=== PATIENT | male | born 1950 | race Caucasian/White ===

== ENCOUNTER 2017-02-10 06:14 | Inpatient (IN) | payer BC ==
[2017-01-26 14:31] VITALS: BMI 25.8
[2017-02-10] MEDS ORDERED: SODIUM CHLORIDE 0.9% P/F 10 ML VIAL IJ ONE (06:38)
[2017-02-10] MEDS ORDERED: DEXAMETHASONE SOD PHOSPHATE/PF 10 MG/ML SDV ONE (06:38)
[2017-02-10] MEDS ORDERED: MIDAZOLAM HCL 2 MG/2 ML SINGLE DOSE VIAL ONE ×4 (06:38→10:33)
[2017-02-10] MEDS ORDERED: ROPIVACAINE HCL 0.5% 30ML VIAL ONE (06:38)
[2017-02-10] MEDS ORDERED: PANTOPRAZOLE 40 MG TABLET (FP) PO ONE (06:46)
[2017-02-10] MEDS ORDERED: ROPIVICAINE 0.2%/MORPH PF/KETOROLAC - 51ML DISP.SYRINGE IA ONE (06:56)
[2017-02-10] MEDS ORDERED: TRANEXAMIC ACID 1000 MG/10 ML VIAL IVPUSH ONE (06:56)
[2017-02-10] MEDS ORDERED: CEFAZOLIN 2 GM in DEXTROSE 5%-WATER - 50 ML IVPB ONE (06:56)
[2017-02-10] MEDS ORDERED: CELECOXIB 200 MG CAPSULE PO ONE (06:56)
[2017-02-10] MEDS ORDERED: oxyCODONE HCL 10 MG SUSTAINED ACTING TABLET PO ONE (06:56)
[2017-02-10] MEDS ORDERED: GABAPENTIN 300 MG CAPSULE (FP) PO ONE (06:56)
[2017-02-10] MEDS ORDERED: PANTOPRAZOLE 40 MG TABLET (FP) ONE (07:00)
[2017-02-10] MEDS ORDERED: VANCOMYCIN 1,000 MG VIAL (RESTRICTED TO ID ONLY) ONE (07:12)
[2017-02-10] MEDS ORDERED: ceFAZolin SODIUM 1 GM VIAL ONE ×2 (07:12→07:47)
[2017-02-10] MEDS ORDERED: BUPIVACAINE HCL/PF 0.5% (5MG/ML) 10 ML VIAL ONE ×2 (07:39→08:24)
[2017-02-10] MEDS ORDERED: DEXAMETHASONE SOD PHOSPHATE 4 MG/1 ML VIAL ONE (07:47)
[2017-02-10] MEDS ORDERED: ONDANSETRON 4 MG/2 ML VIAL ONE (07:47)
--- NOTE | 2017-02-10 07:51 | HP ---
Admitting History and Physical - Admission Chief Complaint: right knee osteoarthritis x years History of Present Illness: 66 year old male presenting in regard to his right knee. Longstanding history of right knee osteoarthritis. Patient admits to pain, limited ROM, difficulty ambulating and difficulty completing ADLs. Patient has failed conservative treatment measures including PO medication, activity modification, exercise program and injections. At this point, patient would like to proceed with a right total knee arthroplasty. History Source: Patient - Past Medical History Cardiovascular: Yes: Hyperlipdemia, Other (inverted T wave on EKG- patient reports this is his norm) Musculoskeletal: Yes: Osteoarthritis - Past Surgical History Past Surgical History: Yes: None Additional Past Surgical History: See written H&P - Smoking History Smoking history: Never smoked Have you smoked in the past 12 months: No - Alcohol/Substance Use Hx Alcohol Use: No History of Substance Use: reports: None - Social History ADL: Independent History of Recent Travel: No Home Medications - Allergies Allergies/Adverse Reactions: Allergies Allergy/AdvReac Type Severity Reaction Status Date / Time No Known Drug Allergies Allergy Verified 01/26/17 14:24 - Home Medications Home Medications: Ambulatory Orders Atorvastatin Ca [Lipitor] 40 mg PO HS 01/23/16 Ascorbic Acid [Vitamin C] 100 mg PO DAILY 02/02/16 Ezetimibe [Zetia] 10 mg PO DAILY 02/02/16 [place]-3 Fatty Acids [Fish Oil] 1 cap PO DAILY 02/02/16 Ubidecarenone/Vit E Acetate [Co Q-10 100 mg Softgel] 1 each PO DAILY 02/02/16 Review of Systems - Review of Systems Musculoskeletal: reports: Crepitus (Right knee), Decreased ROM (Right knee), Joint Pain (Right knee), Joint Swelling (Right knee) Physical Examination Vital Signs: Vital Signs Temperature 97.8 F 02/10/17 06:47 Pulse Rate 66 02/10/17 06:47 Respiratory Rate 18 02/10/17 06:47 Blood Pressure 127/72 02/10/17 06:47 O2 Sat by Pulse Oximetry (%) Constitutional: Yes: Well Nourished, No Distress Eyes: Yes: Conjunctiva Clear HENT: Yes: Atraumatic, Normocephalic Neck: Yes: Supple Cardiovascular: Yes: Regular Rate and Rhythm Respiratory: Yes: Regular Gastrointestinal: Yes: Soft ...Rectal Exam: Yes: Deferred Musculoskeletal: Yes: Joint Stiffness (Right knee), Joint Swelling (Right knee) Assessment/Plan 66 year old male presents regarding his right knee. Long standing history of right knee osteoarthritis. Patient had continued pain, limited ROM and difficulty ambulating. Patient has failed conservative treatment measures. Proceed with a right total knee arthroplasty.
[2017-02-10] MEDS ORDERED: TRANEXAMIC ACID 1000 MG/10 ML VIAL ONE (08:23)
[2017-02-10] MEDS ORDERED: traMADol HCL 50 MG TABLET ONE (11:47)
[2017-02-10] MEDS ORDERED: ACETAMINOPHEN INJECTION 100 ML IVPB ONE (11:47)
[2017-02-10] MEDS ORDERED: KETOROLAC TROMETHAMINE 30 MG/1 ML VIAL ONE (11:47)
--- NOTE | 2017-02-10 12:01 | OP ---
Operative Note - Note: Operative Date: 02/10/17 Pre-Operative Diagnosis: Right knee OA Operation: right TKA Post-Operative Diagnosis: Same as Pre-op Surgeon: Hugo Griffith Manufacturing Associate: Vicky Diaz Anesthesia: Spinal Estimated Blood Loss (mls): 100
[2017-02-10] MEDS ORDERED: MAGNESIUM HYDROX 2400MG/30ML ORAL SUSPENSION 30 ML CUP PO PRN (12:03)
[2017-02-10] MEDS ORDERED: MAG HYDROX/AL HYDROX/SIMETH 30 ML UNIT-DOSE CUP PO PRN (12:03)
[2017-02-10] MEDS ORDERED: ONDANSETRON 4 MG/2 ML VIAL IVPB PRN (12:03)
[2017-02-10] MEDS ORDERED: oxyCODONE HCL 5 MG TABLET PO PRN ×2 (12:06→12:07)
[2017-02-10] MEDS: KETOROLAC TROMETHAMINE 30 MG/1 ML VIAL IVPUSH SCH ×3 (12:10→18:46)
[2017-02-10] MEDS: ACETAMINOPHEN 1000 MG/100 ML VIAL (NON FORMULARY) IVPB ONE ×2 (12:10→13:39)
[2017-02-10] MEDS ORDERED: LACTATED RINGERS SOLUTION 1,000 ML IV SCH (12:15)
--- NOTE | 2017-02-10 12:34 | SPEC ---
DATE OF OPERATION: 02/10/2017 PREOPERATIVE DIAGNOSIS: Right knee osteoarthritis. POSTOPERATIVE DIAGNOSIS: Right knee osteoarthritis. PROCEDURE: Right total knee replacement. ATTENDING SURGEON: Gianni Brown MD MANUFACTURING ENGINEERING TECHNICIAN: JAYA Person ANESTHESIA: Spinal plus sedation. ESTIMATED BLOOD LOSS: 100 mL. COMPLICATIONS: None. SPECIMENS: Resected bone was sent for pathology analysis. DISPOSITION: The patient was transferred to the PACU in stable condition. IMPLANTS USED: [place] [employer] size 5 femoral component, size 4 tibial component with 50-mm stem, 11-mm total stabilized polyethylene insert, and 32-mm patellar component. INDICATIONS: This is a 66-year-old male who is a longtime patient of mine, who had bilateral knee osteoarthritis. He had a left total knee replacement performed in January 2016 and did exceptionally well. He continued to have significant varus deformity in his right knee and flexion contracture which was affecting his ambulation. He has failed conservative management and was indicated for a right total hip replacement. The risks, benefits, and alternatives to the surgery were explained to the patient in great detail and he elected to proceed with the surgery. DESCRIPTION OF PROCEDURE: On the day of surgery, the patient was taken to the operating room and placed on the OR table. Spinal anesthesia was administered by the anesthesiologist. The patient was then positioned supine on the table and all bony prominences were padded. A nonsterile tourniquet was placed on the proximal thigh. The knee was then prepped and draped in the usual sterile fashion and intravenous antibiotics were given for infection prophylaxis. A surgical time-out was then performed with the team, and the patients identity, procedure, side, availability of implants, and the administration of antibiotics was confirmed. The leg was then elevated and exsanguinated, and the tourniquet was inflated. With the knee flexed, a midline incision was made and carried down through the subcutaneous fat to the underlying retinaculum. A medial parapatellar arthrotomy was performed. This was followed by a subperiosteal dissection of the tissue off the proximal, medial tibia. A portion of fat pad was removed from under the patellar tendon, and a small portion of fat was excised off the distal supracondylar femur. The knee was then flexed further and the anterior horn of the lateral meniscus was released from the midline. Next, the anterior and posterior cruciate ligaments were transected. Osteophytes were removed from both the femur and tibia. Grade 4 changes were noted diffusely throughout the knee. Hohmann retractors were then placed around the distal femur. The starting drill was used to enter the intramedullary canal. The starting point had been chosen by checking the radiographs and anatomy. Proper alignment and intramedullary placement was then confirmed by placing the long narrow lovely into the femur. Next, the distal femoral cutting guide was adjusted to 6 degrees of valgus and pinned to the femur. The bone resection was assessed using an irina-wing. An approximately 10-mm distal cut was made and the cut pieces measured. Once this was complete, the sizing guide was used to determine which size femoral component should be used. Next, the appropriately sized 4-in-1 cutting block was then placed at the correct amount of external rotation and the irina wing was used to assure that there would be no notching of the anterior cortex of the femur. Once this was done, Hohmann retractors were used to protect the medial and lateral collateral ligaments, and all appropriate bone cuts were made. Attention was then turned to the tibia. Hohmann retractors were used to translate the tibia anteriorly and protect the collateral ligaments. The medial and lateral menisci were removed. The extramedullary tibial alignment guide was then placed and adjusted for rotation, varus/valgus, and slope. The height of the cutting block was adjusted to the level of the desired bone resection and then pinned in place. The proximal tibia was then cut with a saw and the bone was removed and measured. Once this was completed, trial components were placed and the knee was taken through a full range of motion. Soft tissue balance was assessed in both flexion and extension and found to be appropriate. The knee was stable throughout the full range of motion. The knee was then put into extension and the patella everted. The synovium around the patella was circumscribed with electrocautery. A caliper was used to measure the patellar thickness and a saw was then used to resect the patella at the chondro-osseous junction. The cut surface was then sized and drilled for the appropriate patellar button, with care taken to medialize it. A trial patella was then placed and the knee was again taken through a full range of motion. The knee was found to have both good balance and good patellar tracking. All of the components were removed except the tibial base plate. The appropriate instrumentation was used to drill and punch the proximal tibia for the keel of the final component. All bony surfaces were then cleaned with pulsatile lavage and dried. Bone cement was then prepared on the back table, and final components were cemented in place in the usual fashion. Extruded cement was removed. The polyethylene trial was placed, the knee was put into extension, and axial pressure was applied for compression while the cement hardened. The patellar button was similarly cemented into place. Once the cement had hardened, the knee was taken through a full range of motion to assess stability, balance, and patellar tracking. This was found to be optimal and the trial polyethylene was exchanged for the appropriately sized real implant. The wound was then thoroughly irrigated with normal saline. No. 1 Polysorb and 0 VLoc 180 barbed sutures were used to close the arthrotomy. No. 1 Polysorb and 2-0 Polysorb sutures were used in the subcutaneous tissues. The skin was closed using both 3-0 VLoc 90 suture in a running subcuticular fashion and SwiftSet skin adhesive. Once this was completed a sterile Aquacel dressing and compressive Sebastian-wrap was applied. The tourniquet was then deflated and the patient was awakened and taken to the PACU in stable condition. ADDENDUM: After final implants were placed, a 3-minute dilute Betadine lavage was performed according to the LOCKNEY protocol. Following this, the wound was again thoroughly irrigated with normal saline pulsatile lavage and wound closure was begun. GIANNI BROWN M.D. [id number]
[2017-02-10] MEDS: PSYLLIUM 5.85 GM PACKET PO SCH ×2 (14:00→21:32)
[2017-02-10] MEDS: traMADol HCL 50 MG TABLET PO SCH ×2 (14:00→18:45)
[2017-02-10] MEDS: CEFAZOLIN 2 GM/D5W 50 ML IVPB SCH (18:46)
[2017-02-10] MEDS: ACETAMINOPHEN 325 MG TABLET (FP) PO SCH (18:46)
[2017-02-10] MEDS: CELECOXIB 200 MG CAPSULE PO SCH (21:31)
[2017-02-10] MEDS: ATORVASTATIN CA 40 MG TABLET (FP) PO SCH (21:31)
[2017-02-10] MEDS: SENNOSIDES/DOCUSATE COMBO (SENNA PLUS) TABLET (UD) PO SCH (21:31)
[2017-02-10] MEDS: ASCORBIC ACID 500 MG TABLET (FP) PO SCH (21:31)
[2017-02-10] MEDS: oxyCODONE HCL 10 MG SUSTAINED ACTING TABLET PO SCH (21:32)
[2017-02-10] MEDS: GABAPENTIN 300 MG CAPSULE (FP) PO SCH (21:32)
[2017-02-11] MEDS: ACETAMINOPHEN 325 MG TABLET (FP) PO SCH ×4 (00:04→17:16)
[2017-02-11] MEDS: traMADol HCL 50 MG TABLET PO SCH ×4 (00:04→17:16)
[2017-02-11] MEDS: KETOROLAC TROMETHAMINE 30 MG/1 ML VIAL IVPUSH SCH ×2 (00:05→06:20)
[2017-02-11] MEDS: CEFAZOLIN 2 GM/D5W 50 ML IVPB SCH (01:15)
[2017-02-11] MEDS: PSYLLIUM 5.85 GM PACKET PO SCH ×3 (06:21→21:08)
[2017-02-11 08:07] LABS: MCH 31.1 pg (25.7-33.7); MEAN CELL VOLUME 91.5 fl (80-96); MEAN PLT VOLUME 8.3 fl (7.5-11.1); PLATELET COUNT 265 K/MM3 (134-434); RDW 12.4 % (11.9-15.9); WHITE BLOOD COUNT 12.9 K/mm3 (4.0-10.8)
[2017-02-11 08:10] LABS: ANION GAP 8 (8-16); CALCIUM 8.8 mg/dl (8.4-10.2); CO2 22 mmol/L (22-28); CREATININE 0.9 mg/dl (0.6-1.3); GLUCOSE,RANDOM 196 mg/dl (74-106)
[2017-02-11] MEDS: ASPIRIN 325 MG TABLET PO SCH (09:07)
[2017-02-11] MEDS: SENNOSIDES/DOCUSATE COMBO (SENNA PLUS) TABLET (UD) PO SCH ×2 (09:08→21:07)
[2017-02-11] MEDS: MULTIVITAMINS (DAILY MVI) TABLET (FP) PO SCH (09:08)
[2017-02-11] MEDS: EZETIMIBE 10 MG TABLET (FP) PO SCH (09:08)
[2017-02-11] MEDS: GABAPENTIN 300 MG CAPSULE (FP) PO SCH ×2 (09:08→21:08)
[2017-02-11] MEDS: CELECOXIB 200 MG CAPSULE PO SCH ×2 (09:09→21:08)
[2017-02-11] MEDS: PANTOPRAZOLE 40 MG TABLET (FP) PO SCH (09:09)
[2017-02-11] MEDS: ASCORBIC ACID 500 MG TABLET (FP) PO SCH ×2 (09:09→21:08)
[2017-02-11] MEDS: oxyCODONE HCL 10 MG SUSTAINED ACTING TABLET PO SCH ×2 (09:10→21:08)
--- NOTE | 2017-02-11 14:05 | PN ---
Progress Note (short form) - Note Progress Note: Anesthesia post op note. POD#1. S/PRight total knee replacement. Pat seen and examined. VSS. no post anesthesia complications.
--- NOTE | 2017-02-11 18:51 | PN ---
Progress Note (short form) - Note Progress Note: Pt seen and examined. Did exceptionally well with PT today. No complaints. AVSS Selected Entries 02/11/17 02/11/17 02/11/17 05:59 07:47 14:13 Temperature 98.4 F Pulse Rate 64 Respiratory 18 Rate Blood Pressure 109/57 O2 Sat by Pulse 93 L 93 L Oximetry (%) Oxygen Delivery Room Air Room Air Method Laboratory Tests 02/11/17 02/11/17 07:00 07:00 WBC 12.9 H D Hgb 13.0 Hct 38.4 Plt Count 265 Sodium 134 L Potassium 3.7 Chloride 104 Carbon Dioxide 22 D Anion Gap 8 BUN 22 H D Creatinine 0.9 Random Glucose 196 H D Calcium 8.8 Gen: NAD RLE: c/d/i, NVID A/P 66yo male POD#1 s/p R TKA 1. PT/OOB - WBAT RLE 2. D/C in AM after PT; f/u in office in 10-14 days.
--- NOTE | 2017-02-11 18:56 | DS ---
Physical Examination Vital Signs: Vital Signs Temperature 98.4 F 02/11/17 14:13 Pulse Rate 64 02/11/17 14:13 Respiratory Rate 18 02/11/17 14:13 Blood Pressure 109/57 02/11/17 14:13 O2 Sat by Pulse Oximetry (%) 93 L 02/11/17 14:13 Labs: CBC, BMP 02/11/17 07:00 02/11/17 07:00 Discharge Summary Reason For Visit: OSTEOARTHRITIS OF RIGHT KNEE Current Active Problems Osteoarthritis of right knee (Acute) Procedures: Principal: right TKA Hospital Course: Admitted for elective surgery. Procedure performed without complications. Pt received postoperative antibiotic prophylaxis and DVT ppx. Ambulated with physical therapy. Stable for discharge home with outpatient followup. Condition: Stable - Instructions Diet, Activity, Other Instructions: Dr. Griffith - Knee Replacement Instructions Keep the Aquacel dressing on until removed by Dr. Griffith in 10-14 days - it is antibacterial and waterproof and you can shower with it on. Call the office for a follow-up appointment with Dr. Griffith in 10-14 days. Take one Aspirin 325mg daily for 6 weeks to prevent blood clots in your legs. Take one Pantoprazole 40mg daily for 6 weeks to protect against heartburn and ulcers. Take Celebrex 200mg twice daily for 30 days to reduce swelling and inflammation. Take a multivitamin, extra vitamin C supplement, and stool softener (and/or Metamucil) daily. For pain: *Mild pain (1-3/10): Take 1 Tramadol tablet every 4 hours as needed. Moderate pain (4-6/10): Take 1 Tramadol tablet and 1 Percocet tablet every 4 hours as needed. Severe pain (7-10/10): Take 1 Tramadol tablet and 2 Percocet tablets every 4 hours as needed. Activity: You can put as much weight on the operative leg as you want. Right after you get home, there will be a physical therapist coming to your house to help you walk around and bend/straighten your knee. After your follow-up appointment, you will be sent for more intensive outpatient physical therapy which will include machines and equipment that the home therapist cannot bring to your house. Always use a walker or cane for balance and to prevent falls. Disposition: VNS/HOME HEALTH CARE - Home Medications Comprehensive Discharge Medication List: Ambulatory Orders Atorvastatin Ca [Lipitor] 40 mg PO HS 01/23/16 Ascorbic Acid [Vitamin C] 100 mg PO DAILY 02/02/16 Ezetimibe [Zetia] 10 mg PO DAILY 02/02/16 [place]-3 Fatty Acids [Fish Oil] 1 cap PO DAILY 02/02/16 Ubidecarenone/Vit E Acetate [Co Q-10 100 mg Softgel] 1 each PO DAILY 02/02/16 Ascorbic Acid [Vitamin C -] 500 mg PO BID tablet 02/11/17 Aspirin [ASA -] 325 mg PO DAILY@0800 tablet 02/11/17 Celecoxib [CeleBREX -] 200 mg PO BID #60 tab 02/11/17 Multivitamins [Multivit ([facility] Formulary)] 1 tab PO DAILY tab 02/11/17 Oxycodone HCl/Acetaminophen [Percocet 5-325 mg Tablet] 1 - 2 tab PO Q4H PRN #90 tablet MDD 10 02/11/17 Pantoprazole Sodium [Protonix -] 40 mg PO DAILY #40 tab 02/11/17 Psyllium [Metamucil (Sugar-Free) -] 5.85 gm PO TID packet 02/11/17 Sennosides/Docusate Sodium [Pericolace -] 1 tablet PO BID tablet 02/11/17 Tramadol HCl [Ultram -] 50 mg PO Q4H PRN #90 tablet MDD 6 02/11/17
[2017-02-11] MEDS: ATORVASTATIN CA 40 MG TABLET (FP) PO SCH (21:08)
[2017-02-12] MEDS: ACETAMINOPHEN 325 MG TABLET (FP) PO SCH ×2 (00:10→07:00)
[2017-02-12] MEDS: traMADol HCL 50 MG TABLET PO SCH ×2 (00:12→07:00)
[2017-02-12 06:30] VITALS: BP 140/69; PULSE 93; TEMP 99.1
[2017-02-12] MEDS: PSYLLIUM 5.85 GM PACKET PO SCH (07:00)
[2017-02-12 07:40] LABS: MCH 30.8 pg (25.7-33.7); MCHC 33.5 g/dl (32.0-35.9); MEAN CELL VOLUME 91.9 fl (80-96); MEAN PLT VOLUME 7.6 fl (7.5-11.1); PLATELET COUNT 249 K/MM3 (134-434); RDW 12.5 % (11.9-15.9); WHITE BLOOD COUNT 9.9 K/mm3 (4.0-10.8)
[2017-02-12 08:06] LABS: ANION GAP 4 (8-16); CALCIUM 8.2 mg/dl (8.4-10.2); CO2 23 mmol/L (22-28); CREATININE 0.9 mg/dl (0.6-1.3); GLUCOSE,RANDOM 143 mg/dl (74-106)
[2017-02-12] MEDS: MULTIVITAMINS (DAILY MVI) TABLET (FP) PO SCH (09:09)
[2017-02-12] MEDS: ASPIRIN 325 MG TABLET PO SCH (09:09)
[2017-02-12] MEDS: CELECOXIB 200 MG CAPSULE PO SCH (09:10)
[2017-02-12] MEDS: ASCORBIC ACID 500 MG TABLET (FP) PO SCH (09:10)
[2017-02-12] MEDS: PANTOPRAZOLE 40 MG TABLET (FP) PO SCH (09:11)
[2017-02-12] MEDS: GABAPENTIN 300 MG CAPSULE (FP) PO SCH (09:11)
[2017-02-12] MEDS: SENNOSIDES/DOCUSATE COMBO (SENNA PLUS) TABLET (UD) PO SCH (09:11)
[2017-02-12] MEDS: EZETIMIBE 10 MG TABLET (FP) PO SCH (09:11)
[2017-02-12] MEDS: oxyCODONE HCL 10 MG SUSTAINED ACTING TABLET PO SCH (09:12)
--- NOTE | 2017-02-15 16:57 | PATH ---
Surgical Pathology Report Patient Name: CHETNA GARCIA Med. Rec. #: [id number] /Age/Gender: 1950 (Age: 66) / M Account: [id number] Location: [facility] MED-SURG Taken: 02/10/2017 Received: 02/10/2017 Reported: 02/15/2017 Physicians: Hugo Griffith M.D. Specimen(s) Received BONE RIGHT KNEE Clinical History Osteoarthritis right knee Final Diagnosis BONE, RIGHT KNEE, TOTAL KNEE REPLACEMENT: DEGENERATIVE JOINT DISEASE. Electronically Signed Samreen Fontaine M.D. Gross Description Received in formalin labeled "bone right knee," is a 14.0 x 11.0 x 2.5 cm aggregate of multiple weaver, irregular portions of bone and soft tissue. The tibial plateau measures 7.8 x 5.3 x 1.5 cm. There is a 1.8 cm in greatest dimension area of eburnation present. The articular surfaces are weaver-yellow and focally granular. The underlying trabecular bone is yellow and hard. House Detective sections are submitted in one cassette, following decalcification. 02/11/201702/11/2017
== END 2017-02-12 12:00 | disposition home health service (06) | DRG 470 ==
LOC: FM/S 06:14
PROVIDERS: ADMIT Student in an Organized Health Care Education/Training Program; ATTEND Student in an Organized Health Care Education/Training Program
PROC: 0SRC0J9 Replacement of Right Knee Joint with Synthetic Substitute, Cemented, Open Approach (ICD-10-PCS; principal; 2017-02-10 09:02)
DX: M17.11 Unilateral primary osteoarthritis, right knee (principal); E78.5 Hyperlipidemia, unspecified; E66.9 Obesity, unspecified; Z68.25 Body mass index [BMI] 25.0-25.9, adult
CPT/HCPCS: 36415; 73560-TC-RT; 80048; 85027; 88304-TC; 88311-TC; 94010; 94760; 97010-GP; 97116-GP; 97161-GP

== ENCOUNTER 2018-05-02 20:07 | Emergency (ER) | payer OTHER, BC ==
--- NOTE | 2018-05-02 20:10 | PDOC ---
History of Present Illness - History of Present Illness Initial Comments: 05/02/18 21:14Patient is a 67 year old male with a significant past medical history of HLD, who presents to the ED with complaints of neck tightness and chest uncomfortability this morning. Patient reports going to see his mutual fund accountant shortly after symptoms began, stating he believed he was having a heart attack. He reports full cardiac work up was done with all results returning negative. Patient reports being told it is most likely anxiety. He reports coming into the ED for further evaluation, stating he wants a second opinion. Patient sent copy of cardiogram to mutual fund accountant who called. Signalling And Communications Engineer discussed with ED physician, said the ECG was unchanged from prior as well as from many years ago. Stress test done was negative, as well as No cardiac disease. Signalling And Communications Engineer advised if the blood work is negative patient is safe to be discharged home Denies nausea, vomiting. Denies fevers, chills, shortness of breath. Denies contact with sick individuals, out of state travelling. Denies any other symptoms. Allergies: None Social history: Lives with . No smoking. No alcohol. No illicit drugs. Surgical history: None PMD: None Signalling And Communications Engineer: Dr. Strickland Adult ROS General: No fevers or chills, no weakness, no weight loss HEENT: No change in vision. No sore throat, No ear pain Cardiovascular: No chest pain or shortness of breath Respiratory:No cough, or wheezing. Gastrointestinal: No nausea, vomiting, diarrhea or constipation, No rectal bleeding Genitourinary: No dysuria, hematuria, or frequency Musculoskeletal: No joint or muscle pain or swelling Neurologic: No headache, vertigo, dizziness or loss of consciousness Psychiatric: No depression Skin: No rashes or easy bruising Endocrine: No increased thirst or abnormal weight change Allergic: No skin or latex allergy All other systems reviewed and normal Adult PE General: Well-nourished well-developed individual, no acute distress HEENT: Throat: Normal, tonsils normal, no erythema or exudate Neck: Supple, no meningeal signs, no lymphadenopathy Eyes:Pupils equal reactive and round, extraocular motion intact Chest: Nontender to palpation Cardiac: +Irregular rate and rhythm. S1-S2 normal, no murmurs rubs or gallops Respiratory: Lungs clear to auscultation bilateral Extremities: Warm, dry, no cyanosis, clubbing, or edema Skin: No rashes Neuro: Alert and oriented x3, nonfocal exam, grossly intact, normal gait Psych: Normal mood and affect <Se Rollins - Last Filed: 05/02/18 21:14> - General History Source: Patient Exam Limitations: No Limitations - History of Present Illness Initial Comments: 05/02/18 21:00 A portion of this note was documented by scribe services under my direction. I have reviewed the details of the note, within reason, and agree with the documentation with the following case summary and management plan written by me. Patient treated in the ED. Nursing notes are reviewed and incorporated into the medical decision-making. Vital signs reviewed. Assessment and plan: This is 67-year-old male who comes in complaining of some left posterior neck tightness and discomfort. Patient saw his mutual fund accountant earlier in the day proximally 4 hours ago for similar symptoms had a EKG and was told this is not cardiac however he now comes in for a second opinion. His repeat EKG has no significant change with the exception of he does have some PVCs that were not seen on his cardiogram from 4 hours ago. 05/02/18 21:34 Patient took a xanax and says he feels much better. His troponin is non- measurable. Discussed with patient's mutual fund accountant and lucid patient has no cardiac disease and recommended the patient be discharged home if his troponin is non- measurable. Patient discharged home will follow-up with his mutual fund accountant. <Salvador Doyle I - Last Filed: 05/02/18 21:36> - General Chief Complaint: Pain Stated Complaint: NECK TIGHTNESS, EAR PRESSURE Time Seen by Provider: 05/02/18 20:09 Past History <Se Rollins - Last Filed: 05/02/18 21:14> - Past Medical History Anemia: No Asthma: No Cancer: No Cardiac Disorders: No (INVERTED T WAVE ON EKG/"NORMAL FOR ME",NUCLEAR STRESS OK 03/28) CVA: No COPD: No CHF: No Dementia: No Diabetes: No GI Disorders: No Disorders: No HTN: No Hypercholesterolemia: Yes Liver Disease: No Seizures: No Thyroid Disease: No - Surgical History Abdominal Surgery: No Appendectomy: No Cardiac Surgery: No Cholecystectomy: No Lung Surgery: No Neurologic Surgery: No Orthopedic Surgery: Yes (LEFT TOTAL KNEE REPLACEMENT 2016) - Suicide/Smoking/Psychosocial Hx Smoking History: Never smoked Have you smoked in the past 12 months: No Hx Alcohol Use: No Drug/Substance Use Hx: No Substance Use Type: None Hx Substance Use Treatment: No <Salvador Doyle I - Last Filed: 05/02/18 21:36> - Past Medical History Allergies/Adverse Reactions: Allergies Allergy/AdvReac Type Severity Reaction Status Date / Time No Known Drug Allergies Allergy Verified 01/26/17 14:24 Home Medications: Ambulatory Orders Atorvastatin Ca [Lipitor] 40 mg PO HS 01/23/16 Ascorbic Acid [Vitamin C] 100 mg PO DAILY 02/02/16 Ezetimibe [Zetia] 10 mg PO DAILY 02/02/16 Multivitamins [Multivit ([facility] Formulary)] 1 tab PO DAILY tab 02/11/17 *Physical Exam - Vital Signs Last Vital Signs Temp Pulse Resp BP Pulse Ox 98.5 F 77 16 153/96 98 05/02/18 20:13 05/02/18 20:13 05/02/18 20:13 05/02/18 20:13 05/02/18 20:13 <Se Rollins - Last Filed: 05/02/18 21:14> Heart Score/ECG Review - History History: Slightly suspicious - Electrocardiogram EKG: Non specific repolarization disturbance - Age Age: 45-65 - Risk Factors Based on the list above the patient has:: No risk factors known - Troponin Troponin: </= normal limit - Score Heart Score - Total: 2 <Salvador Doyle I - Last Filed: 05/02/18 21:36> *DC/Admit/Observation/Transfer - Attestations Scribe Attestion: 05/02/18 21:15 Documentation prepared by Se Rollins, acting as medical radiation dosimetrist for Salvador Doyle MD. <Se Rollins - Last Filed: 05/02/18 21:14> - Discharge Dispostion Decision to Admit order: No <Salvador Doyle I - Last Filed: 05/02/18 21:36> Diagnosis at time of Disposition: Anxiety about health - Discharge Dispostion Disposition: HOME Condition at time of disposition: Stable - Patient Instructions Additional Instructions: Return to the emergency department immediately with ANY new, persistent or worsening symptoms. Continue any medications as previously prescribed by your physician. You should follow up with your cardiac doctor as soon as possible regarding today's emergency department visit. . Please make sure your doctor reviews the results of your emergency evaluation. Thank you for coming to the Emergency Department today for your care. It was a pleasure to see you today. Please note that your evaluation is INCOMPLETE until you follow-up with your doctor.
[2018-05-02 20:19] VITALS: BP 153/96; PULSE 77; TEMP 98.5; BMI 28.8
--- NOTE | 2018-05-03 11:00 | EKG ---
Test Reason : Blood Pressure : / mmHG Vent. Rate : 078 BPM Atrial Rate : 078 BPM P-R Int : 158 ms QRS Dur : 106 ms QT Int : 396 ms P-R-T Axes : 041 007 035 degrees QTc Int : 451 ms SINUS RHYTHM WITH FREQUENT PREMATURE VENTRICULAR COMPLEXES AND PREMATURE ATRIAL COMPLEXES INCOMPLETE LEFT BUNDLE BRANCH BLOCK NONSPECIFIC T WAVE ABNORMALITY ABNORMAL ECG WHEN COMPARED WITH ECG OF 02-MAY-2018 15:53, PREMATURE VENTRICULAR COMPLEXES ARE NOW PRESENT PREMATURE ATRIAL COMPLEXES ARE NOW PRESENT Confirmed by OMARI LAURA, SHAY ([id number]) on 05/03/2018 11:00:27 AM Referred By: DANIELLE Confirmed By:SHAY SALCIDO MD
== END 2018-05-02 21:45 | disposition home or self-care (01) ==
LOC: FER 20:07
DX: F41.1 Generalized anxiety disorder (principal); E78.5 Hyperlipidemia, unspecified
CPT/HCPCS: 36415; 82550; 82553; 84484; 93005; 93010; 99282-25

== ENCOUNTER 2020-02-14 08:11 | Emergency (ER) | payer OTHER, BC ==
[2020-02-14 08:20] VITALS: BMI 28.0
[2020-02-14] MEDS ORDERED: dilTIAZem HCL 50 MG/10 ML - 10 ML VIAL ONE (08:28)
[2020-02-14] MEDS ORDERED: dilTIAZem HCL 30 MG TABLET PO ONE (08:51)
[2020-02-14] MEDS ORDERED: METOPROLOL TARTRATE 25 MG TABLET (FP) PO ONE (08:54)
[2020-02-14] MEDS ORDERED: dilTIAZem HCL 50 MG/10 ML - 10 ML VIAL IVPUSH ONE ×2 (08:57→09:04)
[2020-02-14] MEDS ORDERED: METOPROLOL TARTRATE 25 MG TABLET (FP) ONE (08:58)
[2020-02-14] MEDS ORDERED: APIXABAN 5 MG TABLET ONE (08:58)
[2020-02-14] MEDS ORDERED: SODIUM CHLORIDE 1,000 ML IV ONE (09:10)
[2020-02-14 09:15] LABS: BASO % 0.5 % (0-2.0); EOS % 1.7 % (0-4.5); HEMATOCRIT 47.5 % (35.4-49); LYMPH % 43.2 % (8-40); MCH 30.5 pg (25.7-33.7); MCHC 33.7 g/dl (32.0-35.9); MEAN CELL VOLUME 90.6 fl (80-96); MEAN PLT VOLUME 7.9 fl (7.5-11.1); MONO % 6.8 % (3.8-10.2); NEUT % 47.8 % (42.8-82.8); PLATELET COUNT 313 K/MM3 (134-434); RBC 5.24 M/mm3 (4.00-5.60); RDW 13.1 % (11.9-15.9); WHITE BLOOD COUNT 10.8 K/mm3 (4.0-10.0)
--- NOTE | 2020-02-14 09:35 | PDOC ---
History of Present Illness - General Chief Complaint: Irregular Heart Beat Stated Complaint: SENT BY PCP Time Seen by Provider: 02/14/20 08:48 - History of Present Illness Initial Comments: 69M with PMH of 2 episodes of Afib with RVR in the past presents to the ED with palpitations after being startled by his cat this morning. He contacted his video machines mechanic who advised that he come to the ED. He denied chest pain or shortness of breath. The monitor demonstrated Afib with HR 140s. HPI PMH: as in HPI SH: see below Meds: none Allergies: NKDA Tob/Etoh/Rec drugs: negx3 PCP: unknown ROS GENERAL/CONSTITUTIONAL: No fever or chills. No weakness. HEENT: No change in vision. No ear pain or discharge. No sore throat. CARDIOVASCULAR: No chest pain or shortness of breath, +palpitations RESPIRATORY: No cough, wheezing, or hemoptysis. GASTROINTESTINAL: No nausea, vomiting, diarrhea or constipation. GENITOURINARY: No dysuria, frequency, or change in urination. MUSCULOSKELETAL: No joint or muscle swelling or pain. No neck or back pain. SKIN: No rash NEUROLOGIC: No headache, vertigo, loss of consciousness, or change in streng th/sensation. ENDOCRINE: No increased thirst. No abnormal weight change HEMATOLOGIC/LYMPHATIC: No anemia, easy bleeding, or history of blood clots. ALLERGIC/IMMUNOLOGIC: No hives or skin allergy. PE GENERAL: Awake, alert, and fully oriented, in no acute distress HEAD: No signs of trauma, normocephalic, atraumatic EYES: PERRLA, EOMI, sclera anicteric, conjunctiva clear ENT: Auricles normal inspection, hearing grossly normal, nares patent, oropharynx clear without exudates. Moist mucosa NECK: Normal ROM, supple, no LAD, JVD, or masses HEART: Regular rate and rhythm, normal S1 and S2, no murmurs, rubs or gallops, peripheral pulses normal and equal bilaterally. LUNGS: No distress, speaks full sentences, clear to auscultation bilaterally ABDOMEN: Soft, nontender. No guarding, no rebound. No masses EXTREMITIES: Normal inspection, Normal range of motion, no edema. No clubbing or cyanosis. NEUROLOGICAL: CNII-XII grossly intact. Normal speech, normal gait, no focal sensorimotor deficits SKIN: Warm, Dry, normal turgor, no rashes or lesions noted Assessment and Plan 1. Afib w/ RVR Chino Martin, PGY1 Emergency Medicine Past History - Medical History Allergies/Adverse Reactions: Allergies Allergy/AdvReac Type Severity Reaction Status Date / Time No Known Drug Allergies Allergy Verified 02/14/20 08:18 Home Medications: Ambulatory Orders Atorvastatin Ca [Lipitor] 40 mg PO HS 01/23/16 Ascorbic Acid [Vitamin C] 100 mg PO DAILY 02/02/16 Ezetimibe [Zetia] 10 mg PO DAILY 02/02/16 Multivitamins [Multivit ([facility] Formulary)] 1 tab PO DAILY tab 02/11/17 Apixaban [Eliquis] 5 mg PO BID 14 Days #28 tablet 02/14/20 Metformin HCl [Glucophage] 500 mg PO DAILY 02/14/20 Metoprolol Tartrate 25 mg PO BID 14 Days #28 tablet 02/14/20 Anemia: No Asthma: No Cancer: No Cardiac Disorders: No (INVERTED T WAVE ON EKG/"NORMAL FOR ME",NUCLEAR STRESS OK 03/28) CVA: No COPD: No CHF: No Dementia: No Diabetes: No GI Disorders: No Disorders: No HTN: Yes Hypercholesterolemia: Yes Liver Disease: No Seizures: No Thyroid Disease: No - Surgical History Abdominal Surgery: No Appendectomy: No Cardiac Surgery: No Cholecystectomy: No Lung Surgery: No Neurologic Surgery: No Orthopedic Surgery: Yes (LEFT TOTAL KNEE REPLACEMENT 2016) - Psycho-Social/Smoking History Smoking History: Never smoked Have you smoked in the past 12 months: No - Substance Abuse Hx (Audit-C & DAST Scrn) How often the patient has a drink containing alcohol: Never Score: In Men: 4 or > Positive; In Women: 3 or > Positive: 0 Screen Result (Pos requires Nsg. Audit-10AR): Negative *Physical Exam - Vital Signs Last Vital Signs Temp Pulse Resp BP Pulse Ox 98.4 F 110 H 19 115/73 100 02/14/20 08:18 02/14/20 09:09 02/14/20 09:09 02/14/20 09:09 02/14/20 09:09 ED Treatment Course - LABORATORY CBC & Chemistry Diagram: 02/14/20 08:50 02/14/20 08:50 - ADDITIONAL ORDERS Additional order review: 02/14/20 08:50 RBC 5.24 MCV 90.6 MCHC 33.7 RDW 13.1 MPV 7.9 Neutrophils % 47.8 Lymphocytes % 43.2 H Monocytes % 6.8 Eosinophils % 1.7 Basophils % 0.5 - RADIOLOGY Radiology Studies Ordered: Category Date Time Status CHEST X-RAY PORTABLE* [RAD] Stat Radiology 02/14/20 08:56 Taken - Medications Given in the ED: ED Medications Discontinued Medications Generic Name Dose Route Start Last Admin Trade Name Corwin PRN Reason Stop Dose Admin Diltiazem HCl 10 mg 02/14/20 08:57 02/14/20 09:00 Cardizem Injection - IVPUSH 02/14/20 08:58 10 mg ONCE ONE Administration Diltiazem HCl 10 mg 02/14/20 09:04 02/14/20 09:06 Cardizem Injection - IVPUSH 02/14/20 09:05 10 mg ONCE ONE Administration Metoprolol Tartrate 25 mg 02/14/20 08:54 02/14/20 09:04 Lopressor - PO 02/14/20 08:55 25 mg ONCE ONE Administration Medical Decision Making - Medical Decision Making 02/14/20 09:35 69M with PMH of 2 episodes of Afib with RVR in the past presents to the ED with palpitations after being startled by his cat this morning. Monitor demonstrated Afib with rate in 140s. He was given 10mg IV diltiazem x2, lowering HR to 90- 100s. Cardiology team of Dr. Strickland saw pt and recommended that he start 25mg metoprolol and 5mg apixaban (eliquis). 02/14/20 10:58 Labs notable for: -CBC wnl -CMP wnl -Trop neg CXR unremarkable. 02/14/20 11:26 -Spoke with Dr. Strickland, and said the patient was safe for discharge and that he would see him in his office tomorrow. -Pt sinus with HR 70 and stable for discharge Discharge - Discharge Information Problems reviewed: Yes Clinical Impression/Diagnosis: Atrial fibrillation with RVR Condition: Stable Disposition: HOME - Admission No - Follow up/Referral - Patient Discharge Instructions Patient Printed Discharge Instructions: DI for Arrhythmias Additional Instructions: You were seen in the ED for complaints of palpitations. In the ED you were evaluated with EKG, blood work, and chest Xray. Your results were on the EKG showed atrial fibrilation with rapid ventricular rate. Blood work and chest xray were normal. There does not appear to be an acute need for immediate hospitalization. You are advised to follow up with your Dr. Strickland within 1 week. You were given a prescription for 25mg Metroprolol and 5mg Eliquis. Return to the ED immediately if you experience palpitations with lightheadedness, chest pain, or shortness of breath. - Post Discharge Activity
--- NOTE | 2020-02-14 09:38 | PDOC ---
Attending Attestation - Resident Resident Name: Chino Martin - HPI HPI: 02/14/20 09:44 Pt presents to the ED complaining of two day history of palpitations that started after he was startled by his cat. Denies chest pain or shortness of breath. Complaining of some mild lightheadness. 02/14/20 09:49 - Physicial Exam PE: 02/14/20 09:59 Agree with resident exam. PAtient is alert and in no acute distress. CV: irregularly irregular, no murmur. - Medical Decision Making 02/14/20 09:59 Pt presents to the ED complaining of palpitations. History of paroxsymal A fib in the past. Improvement in HR after cardizem 20. Discussed with gut puller--will start eliquis and metoprolol and admit to medicine. Discharge - Discharge Information Problems reviewed: Yes Clinical Impression/Diagnosis: Atrial fibrillation with RVR Condition: Stable Disposition: HOME - Additional Discharge Information Prescriptions: Apixaban [Eliquis] 5 mg PO BID 14 Days #28 tablet Metoprolol Tartrate 25 mg PO BID 14 Days #28 tablet - Follow up/Referral - Patient Discharge Instructions Patient Printed Discharge Instructions: DI for Arrhythmias Additional Instructions: You were seen in the ED for complaints of palpitations. In the ED you were evaluated with EKG, blood work, and chest Xray. Your results were on the EKG showed atrial fibrilation with rapid ventricular rate. Blood work and chest xray were normal. There does not appear to be an acute need for immediate hospitalization. You are advised to follow up with your Dr. Strickland within 1 week. You were given a prescription for 25mg Metroprolol and 5mg Eliquis. Return to the ED immediately if you experience palpitations with lightheadedness, chest pain, or shortness of breath. - Post Discharge Activity
[2020-02-14 09:41] LABS: ALBUMIN 3.9 g/dl (3.4-5.0); ALK PHOS 74 U/L (45-117); ANION GAP 9 MMOL/L (8-16); BILIRUBIN,TOTAL 0.8 mg/dL (0.2-1); BLOOD UREA NITROGEN 20.5 mg/dL (7-18); CALCIUM 9.3 mg/dL (8.5-10.1); CHLORIDE 107 mmol/L (98-107); CO2 24 mmol/L (21-32); CREATININE 1.1 mg/dL (0.55-1.3); GLUCOSE,RANDOM 132 mg/dL (74-106); POTASSIUM 4.3 mmol/L (3.5-5.1); SGOT/AST 18 U/L (15-37); SGPT/ALT 41 U/L (13-61); SODIUM 140 mmol/L (136-145); TOT PROT 6.9 g/dl (6.4-8.2)
--- NOTE | 2020-02-14 09:42 | CON.CARD ---
Consult Consult Specialty:: Cardiology Referred by:: Paola Reason for Consultation:: Atrial fibrillation - History of Present Illness Chief Complaint: Palpitations History of Present Illness: The patient is a 69-year-old active man, history of hypertension, hyperlipidemia, arthritis, status post knee surgery, paroxysmal atrial fibri llation which were self terminated, not on anticoagulation, now presenting with intermittent palpitations for the past 48 hours. The patient was found to be in atrial fibrillation. He was asymptomatic at the time of my exam. Ventricular rates around 110. The patient denied chest pains and shortness of breath. No fevers, chills, cough, GI problems. No clinical evidence of coronavirus infection. - History Source History Provided By: Patient Limitations to Obtaining History: No Limitations - Past Medical History Cardio/Vascular: Yes: AFIB, Hyperlipdemia, Other (inverted T wave on EKG- pa tient reports this is his norm) Musculoskeletal: Yes: Osteoarthritis - Past Surgical History Past Surgical History: Yes: None - Alcohol/Substance Use Hx Alcohol Use: No History of Substance Use: reports: None - Smoking History Smoking history: Never smoked Have you smoked in the past 12 months: No - Social History ADL: Independent History of Recent Travel: No Home Medications - Allergies Allergies/Adverse Reactions: Allergies Allergy/AdvReac Type Severity Reaction Status Date / Time No Known Drug Allergies Allergy Verified 02/14/20 08:18 - Home Medications Home Medications: Ambulatory Orders Atorvastatin Ca [Lipitor] 40 mg PO HS 01/23/16 Ascorbic Acid [Vitamin C] 100 mg PO DAILY 02/02/16 Ezetimibe [Zetia] 10 mg PO DAILY 02/02/16 Multivitamins [Multivit ([facility] Formulary)] 1 tab PO DAILY tab 02/11/17 Metformin HCl [Glucophage] 500 mg PO DAILY 02/14/20 Review of Systems - Review of Systems Constitutional: reports: No Symptoms Eyes: reports: No Symptoms HENT: reports: No Symptoms Neck: reports: No Symptoms Cardiovascular: reports: Palpitations Respiratory: reports: No Symptoms Gastrointestinal: reports: No Symptoms Genitourinary: reports: No Symptoms Breasts: reports: No Symptoms Reported Musculoskeletal: reports: No Symptoms Integumentary: reports: No Symptoms Neurological: reports: No Symptoms Endocrine: reports: No Symptoms Hematology/Lymphatic: reports: No Symptoms Vital Signs: Vital Signs Temperature 98.4 F 02/14/20 08:18 Pulse Rate 110 H 02/14/20 09:09 Respiratory Rate 19 02/14/20 09:09 Blood Pressure 115/73 02/14/20 09:09 O2 Sat by Pulse Oximetry (%) 100 02/14/20 09:09 Constitutional: Yes: Well Nourished, No Distress, Calm Eyes: Yes: WNL, Conjunctiva Clear, EOM Intact HENT: Yes: WNL, Atraumatic, Normocephalic Neck: Yes: WNL, Supple, Trachea Midline Respiratory: Yes: WNL, Regular, CTA Bilaterally Gastrointestinal: Yes: WNL, Normal Bowel Sounds, Soft Renal/: Yes: WNL Cardiovascular: Yes: Pulse Irregular JVD: No Carotid Bruit: No PMI: Non-Displaced Heart Sounds: Yes: S1, S2 Murmur: Yes: Systolic Murmur, Grade 2 Musculoskeletal: Yes: WNL Extremities: Yes: WNL Edema: No Peripheral Pulses WNL: Yes Integumentary: Yes: WNL Neurological: Yes: WNL, Alert, Oriented ...Motor Strength: WNL - Other Data Labs, Other Data: CBC, BMP 02/14/20 08:50 Assessment/Plan The patient is a 69-year-old man, with a history of hypertension, hyperlipidemia, diabetes, paroxysmal atrial fibrillation not on anticoagulation, now presenting with intermittent palpitations for the past 48 hours. The patient denied chest pains or shortness of breath. Also denied paroxysmal nocturnal dyspnea and orthopnea. He was asymptomatic in atrial fibrillation with a heart rate of about 110 at the time of my exam. Lab results are pending. There is no evidence of ischemia nor acute coronary syndrome. Please start metoprolol 50 mg twice daily. Start Eliquis 5 mg twice daily. Admit to a monitored setting. Considering a DO/DCCV if remains in atrial fibrillation. The patient is stable and comfortable.
[2020-02-14] MEDS ORDERED: APIXABAN 5 MG TABLET PO SCH (10:00)
[2020-02-14 10:12] VITALS: PULSE 79
--- NOTE | 2020-02-14 11:35 | PN ---
Teaching Attending Note Name of Resident: Jag Brewster ATTENDING PHYSICIAN STATEMENT I saw and evaluated the patient. I reviewed the resident's note and discussed the case with the resident. I agree with the resident's findings and plan as documented. SUBJECTIVE: OBJECTIVE: ASSESSMENT AND PLAN: New Onset Afib with RVR
[2020-02-14 12:25] VITALS: BP 118/79; TEMP 98.1
--- NOTE | 2020-02-14 15:27 | EKG ---
Test Reason : Blood Pressure : / mmHG Vent. Rate : 151 BPM Atrial Rate : 151 BPM P-R Int : 000 ms QRS Dur : 096 ms QT Int : 290 ms P-R-T Axes : 000 021 143 degrees QTc Int : 459 ms ATRIAL FIBRILLATION WITH RAPID VENTRICULAR RESPONSE LOW VOLTAGE QRS CANNOT RULE OUT ANTERIOR INFARCT , AGE UNDETERMINED ABNORMAL ECG WHEN COMPARED WITH ECG OF 02-MAY-2018 20:41, ATRIAL FIBRILLATION HAS REPLACED SINUS RHYTHM VENT. RATE HAS INCREASED BY 73 BPM NONSPECIFIC T WAVE ABNORMALITY NO LONGER EVIDENT IN INFERIOR LEADS Confirmed by JS KELLY MD ([id number]) on 02/14/2020 3:27:07 PM Referred By: Confirmed By:JS KELLY MD
--- NOTE | 2020-02-14 15:28 | EKG ---
Test Reason : Blood Pressure : / mmHG Vent. Rate : 081 BPM Atrial Rate : 081 BPM P-R Int : 170 ms QRS Dur : 096 ms QT Int : 368 ms P-R-T Axes : 031 001 061 degrees QTc Int : 427 ms NORMAL SINUS RHYTHM POSSIBLE INFERIOR INFARCT , AGE UNDETERMINED ANTEROSEPTAL INFARCT (CITED ON OR BEFORE 14-FEB-2020) ABNORMAL ECG WHEN COMPARED WITH ECG OF 14-FEB-2020 08:21, SINUS RHYTHM HAS REPLACED ATRIAL FIBRILLATION VENT. RATE HAS DECREASED BY 70 BPM BORDERLINE CRITERIA FOR INFERIOR INFARCT ARE NOW PRESENT ST NO LONGER DEPRESSED IN LATERAL LEADS Confirmed by JS KELLY MD ([id number]) on 02/14/2020 3:28:21 PM Referred By: Confirmed By:JS KELLY MD
== END 2020-02-14 12:05 | disposition home or self-care (01) ==
LOC: JER 08:11
PROC: 3E033GC Introduction of Other Therapeutic Substance into Peripheral Vein, Percutaneous Approach (ICD-10-PCS; principal; 2020-02-14)
PROC: 3E0337Z Introduction of Electrolytic and Water Balance Substance into Peripheral Vein, Percutaneous Approach (ICD-10-PCS; 2020-02-14)
DX: I48.91 Unspecified atrial fibrillation (principal)
CPT/HCPCS: 36415; 71045-TC-FY; 80053; 82550; 82553; 84484; 85025; 93005; 93010; 99285-25